=== PATIENT | female | born 1935 | race Caucasian/White ===

== ENCOUNTER 2021-11-24 14:44 | Emergency (ER) | payer OTHER ==
[~2021-11-24] VITALS: Ht 167.6 cm; Wt 56.7 kg
[2021-11-24 14:53] VITALS: BP_SYST 136
--- NOTE | 2021-11-24 15:25 | NUR ---
RECEIVED PT FROM HERBERT MARQUEZ. PT IS AAOX4. RESP E/U. LUNG SOUNDS CTA. NO R/A. ABDOMEN SOFT, NONTENDER, NONDISTENDED. BOWEL SOUNDS ACTIVE X4 QUADS. DENIES N/V/D/C. DISTATL PULSES NORMAL, SKIN CDI. NO EDEMA. PT ADMITTED FOR C/O GENERALIZED WEAKNESS AND LAYTON. CT COMPLETED.
--- NOTE | 2021-11-24 15:36 | NUR ---
Patient to ER bed 03 to gown for evaluation. Side rails up.
[2021-11-24 16:07] LABS: BASOPHILS # (AUTO) 0.1 K/uL (0.0-0.2); BASOPHILS % (AUTO) 0.7 % (0.0-2.0); EOSINOPHILS # (AUTO) 0.2 K/uL (0.0-0.4); EOSINOPHILS % (AUTO) 1.8 % (0.0-4.0); HEMATOCRIT 36.4 % (36-48); LYMPHOCYTES # (AUTO) 2.7 K/uL (1.0-5.5); MEAN CORPUSCULAR HEMOGLOBIN 28 pg (27-31); MEAN CORPUSCULAR HGB CONC 33 % (32-36); MEAN CORPUSCULAR VOLUME 84 fL (79.0-98.0); MONOCYTES # (AUTO) 0.9 K/uL (0.0-1.0); MONOCYTES % (AUTO) 9.4 % (1.7-9.3); NEUTROPHILS # (AUTO) 5.6 K/uL (1.8-7.7); NEUTROPHILS % (AUTO) 59.1 % (40.0-70.0); PLATELET COUNT (AUTO) 198 K/uL (130-430); RED BLOOD CELL COUNT(AUTO) 4.34 MIL/uL (4.2-6.2); RED CELL DISTRIBUTION WIDTH 14.6 % (9.0-15.0); WHITE BLOOD COUNT (AUTO) 9.4 K/uL (4.8-10.8)
[2021-11-24 17:14] LABS: CHLORIDE 106 mmol/L (98-107); POTASSIUM 4.2 mmol/L (3.5-5.1); PROTHROMBIN TIME 10.4 SECS (9.5-12.5); SODIUM SERUM 142 mmol/L (136-145)
[2021-11-24 17:19] LABS: ALANINE AMINOTRANSFERASE 13 U/L (12-78); ALBUMIN 3.4 g/dL (3.4-4.8); ANION GAP 8 (5-15); ASPARTATE AMINOTRANSFERASE 16 U/L (10-37); CALCIUM 9.3 mg/dL (8.4-11.0); CREATININE 0.89 mg/dL (0.55-1.30); GLUCOSE 99 mg/dL (70-99); THYROID STIMULATING HORMONE 0.13 uIu/mL (0.36-3.74); TOTAL BILIRUBIN 0.2 mg/dL (0.0-1.0); UREA NITROGEN, BLOOD 16 mg/dL (8-21)
[2021-11-24 17:56] LABS: BILIRUBIN,URINE NEGATIVE (NEGATIVE); BLOOD, URINE NEGATIVE (NEGATIVE); CLARITY/URINE CLEAR (CLEAR); COLOR,URINE YELLOW (YELLOW); GLUCOSE,URINE NEGATIVE (NEGATIVE); KETONES,URINE NEGATIVE (NEGATIVE); LEUKOCYTE ESTERASE ,URINE NEGATIVE (NEGATIVE); NITRITE, URINE NEGATIVE (NEGATIVE); PH,URINE 6.5 (5.0-8.0); PROTEIN URINE NEGATIVE (NEGATIVE); UROBILINOGEN,URINE 0.2 (0.2-1.0)
[2021-11-24] MEDS ORDERED: hydrALAZINE HCL 20 MG/ML VIAL IVP ONE (18:00)
--- NOTE | 2021-11-24 18:10 | NUR ---
PT'S B/P , DR. CHEN MADE AWARE. APRESOLINE IVP 20MG GIVEN AT THIS TIME.
--- NOTE | 2021-11-24 19:27 | NUR ---
PT ENDORSED TO HERBERT CHRISTIANSON. ALL QUESTIONS AND CONCERNS ADDRESSED.
[2021-11-24 20:11] VITALS: BP_SYST 129
--- NOTE | 2021-11-24 20:13 | NUR ---
KARTHIK, RN PT STABLE FOR D/C TO HOME WITH FRIEND/ NEIGHBOR. PT VERBALIZES UNDERSTANDIN\G OF AFTERCARE PAPERWORK. IV D/C WITH CATH INTACT TO LEFT HAND., TO LOBBY AMB WITH CARLOS ALBERTO/ STEADY GAIT WITH ALL PAPERWORK IN HAND
== END 2021-11-24 20:13 | disposition home or self-care (01) ==
LOC: SED 14:44
DX: E05.90 Thyrotoxicosis, unspecified without thyrotoxic crisis or storm (principal); E78.00 Pure hypercholesterolemia, unspecified; I10 Essential (primary) hypertension; R42 Dizziness and giddiness; R51.9 Headache, unspecified; R11.0 Nausea; Z79.899 Other long term (current) drug therapy; Z20.822 Contact with and (suspected) exposure to COVID-19
CPT/HCPCS: 99285; 96374; 70450; 71045; 87426; 80053; 82550; 83880; 84443; 85025; 85610; 85730; 84484; 36415; 93005; 76376; 81003; J0360